=== PATIENT | female | born 1990 | race Two or more races ===

== ENCOUNTER 2016-09-07 17:10 | Emergency (ER) | payer MEDICAID ==
[~2016-09-07] VITALS: Ht 167.6 cm; Wt 57.6 kg
[2016-09-07 17:19] VITALS: BP 111/73
[2016-09-07] MEDS ORDERED: NKM (17:21)
[2016-09-07] MEDS ORDERED: Bacitracin Oint UD TOPIC ONE (17:45)
[2016-09-07] MEDS ORDERED: TdaP Vaccine 0.5ml Syr IM ONE (17:45)
[2016-09-07] MEDS ORDERED: Lidocaine 1% MPF 10mg/ml 5ml INJ ONE (17:45)
[2016-09-07] MEDS ORDERED: BACITRACIN15 GM TOPIC (18:18)
[2016-09-07] MEDS ORDERED: IBUPROFEN600 MG ORAL (18:18)
[2016-09-07 18:31] VITALS: BP 111/73
--- NOTE | 2016-09-07 21:15 | Emergency Room Report ---
History of Present Illness General Chief Complaint: Laceration Source: Patient Present Illness HPI The patient is a 25-year-old female presenting for laceration to the left hand which occurred today. The patient states that a cup fell onto cup that she was holding and a fragment cuts into the left hand. She noticed pain and bleeding. She applied pressure which stopped the bleeding. Denies any pain at this time. She denies any numbness or tingling. Last tetanus shot was within 2 years. She denies any other symptoms including N, V, F, chills Allergies: Coded Allergies: No Known Allergies (Unverified , 09/07/16) Patient History Past Medical History: see triage record Pertinent Family History: none Last Menstrual Period: 09/06/16 Reviewed Nursing Documentation: PMH: Agreed, PSxH: Agreed Nursing Documentation-PMH Past Medical History: No Stated History Review of Systems All Other Systems: negative except mentioned in HPI Physical Exam Vital Signs Date Time Temp Pulse Resp B/P Pulse Ox O2 Delivery O2 Flow Rate FiO2 09/07/16 17:19 98.1 79 16 111/73 98 Room Air Sp02 EP Interpretation: reviewed, normal General Appearance: no apparent distress, alert, GCS 15, non-toxic Head: normocephalic, atraumatic Eyes: bilateral eye PERRL, bilateral eye normal inspection Musculoskeletal: normal range of motion, tender - TTP over the laceration of the L dorsal thumb Neurologic: alert, oriented x3, responsive, motor strength/tone normal, sensory intact, speech normal Psychiatric: judgement/insight normal, memory normal, mood/affect normal, no suicidal/homicidal ideation Skin: normal turgor, laceration - 3cm linear horizontal laceration the L dorsal thumb proximal the to IPJ Lymphatic: no adenopathy Procedures Splinting Splinting : Consent: Verbal Location: L thumb Pre-Made Type: metal Pre-Proc Neuro Vasc Exam: normal Post-Proc Neuro Vasc Exam: normal Patient Tolerated: Well Complications: None Laceration/Wound Repair Laceration/Wound Repair : Consent: Verbal Wound Location: upper extremity Wound's Depth, Shape: superficial, linear Wound Length (cm): 4 Wound Explored: clean Irrigated w/ Saline (ccs): 200 Betadine Prep?: Yes Anesthesia: 1% Lidocaine Volume Anesthetic (ccs): 5 Wound Debrided: minimal Wound Repaired With: sutures Suture Size/Type: 4:0, proline Layer Closure?: No Sterile Dressing Applied?: Yes Splint Applied?: Yes Type of Splint Applied: metal finger Sling Applied?: No Patient Tolerated: Well Complications: None Medical Decision Making PA Attestation Dr. Larkin is my supervising physician. Patient management was discussed with my supervising physician Diagnostic Impression: Primary Impression: Thumb laceration Qualified Codes: S61.012A - Laceration without foreign body of left thumb without damage to nail, initial encounter ER Course The patient is a 25-year-old female presenting for laceration to the left hand Ddx considered include but not limited to fracture, tendon/ligament injury, avulsion, nerve damage PE: vitals WNL. NAD 3cm linear horizontal laceration the L dorsal thumb proximal the to IPJ. No ecchymosis.No obvious deformity of joints. SILT. Full AROM intact. The wound was irrigated with normal saline and cleaned with betadine. A 27g needle was used to administer 5mL of lidocaine w.o epi for digital block. 4 sutures were placed with 4-0 prolene. The wound was well approximated and the patient tolerated the procedure well. The wound was then cleaned and bacitracin was applied. A metal finger splint was applied The patient will continue to keep the wound clean and dry and will followup with PMD . Suture instructions provided. ER precautions are given Last Vital Signs Date Time Temp Pulse Resp B/P Pulse Ox O2 Delivery O2 Flow Rate FiO2 09/07/16 18:31 98.1 69 16 111/73 98 Room Air Status: improved Disposition: HOME, SELF-CARE Condition: Improved Scripts Bacitracin (Bacitracin) 28.4 Gm Oint...g. 1 APPLIC TOPIC THREE TIMES A DAY, #28 GM Prov: TERBRITTANIANJES P.A. 09/07/16 Ibuprofen* (MOTRIN*) 600 Mg Tablet 600 MG ORAL Q6H Y for For Pain, #30 TAB Prov: MADDISONANJENNAY P.A. 09/07/16 Patient Instructions: Laceration Care, Adult Additional Instructions: I discussed my findings with the patient. All questions and concerns have been answered. Treatment and medication compliance have been addressed. I advised the patient that they need to follow up with PMD in 7 days for wound check and suture removal. If you are unable to see PMD, return to the ED in 7 days. Return to ED if pain remains or worsens, you notice discharge from the wound, the wound continues to bleed, the suture/s fall out, you notice a fever or chills, or for any reason. Patient is advised to keep the wound clean and apply an antibacterial ointment. Patient verbalized understanding of discharge instructions. JES SPENCER September 07, 2016 21:14
== END 2016-09-07 18:45 | disposition home or self-care (01) ==
LOC: EMR 18:04
DX: S61.012A Laceration without foreign body of left thumb without damage to nail, initial encounter (principal); W25.XXXA Contact with sharp glass, initial encounter; Y92.410 Unspecified street and highway as the place of occurrence of the external cause
CPT/HCPCS: 12002; 29130; 99284; Z7502; 90471; 90715

== ENCOUNTER 2016-09-14 16:14 | Emergency (ER) | payer OTHER ==
[~2016-09-14] VITALS: Ht 167.6 cm; Wt 58.5 kg
[~2016-09-14 16:14] MED LIST: BACITRACIN15 GM TOPIC; IBUPROFEN600 MG ORAL; NKM
[2016-09-14 16:25] VITALS: BP 98/50
[2016-09-14 16:42] VITALS: BP 98/50
--- NOTE | 2016-09-14 21:56 | Emergency Room Report ---
History of Present Illness General Chief Complaint: Wound Recheck/Suture Removal Source: Patient Present Illness [facility] The patient is a 25-year-old female presenting for suture removal. The patient had stitches placed of the left thumb one week prior. She denies any complications and denies any pain, bleeding, or discharge. She denies numbness or tingling. She denies any other symptoms including nausea, vomiting, fever, chills Allergies: Coded Allergies: No Known Allergies (Unverified , 09/07/16) Patient History Past Medical History: see triage record Pertinent Family History: none Now: No Reviewed Nursing Documentation: PMH: Agreed, PSxH: Agreed Nursing Documentation-PMH Past Medical History: No Stated History Review of Systems All Other Systems: negative except mentioned in HPI Physical Exam Vital Signs Date Time Temp Pulse Resp B/P Pulse Ox O2 Delivery O2 Flow Rate FiO2 09/14/16 16:19 98.8 74 17 98/50 99 Room Air Sp02 EP Interpretation: reviewed, normal General Appearance: no apparent distress, alert, GCS 15, non-toxic Head: normocephalic, atraumatic Musculoskeletal: back normal, gait/station normal, normal range of motion, non- tender Neurologic: alert, oriented x3, responsive, motor strength/tone normal, sensory intact, speech normal Psychiatric: judgement/insight normal, memory normal, mood/affect normal, no suicidal/homicidal ideation Skin: other - L thumb sutures in place. No bleeding. No edema. No discharge Lymphatic: no adenopathy Medical Decision Making PA Attestation Dr. Larkin is my supervising physician. Patient management was discussed with my supervising physician Diagnostic Impression: Primary Impression: Visit for suture removal ER Course The patient is a 25-year-old female presenting for suture removal. Differential diagnosis considered: Wound infection, nonhealing wound, cellulitis , abscess Sutures are in place and wound well approximated. No erythema or edema. Sensation is intact. Suture removal: simple interrupted sutures were removed without complication. No bleeding or discharge. Wound is well approximated. No surrounding erythema. The patient is discharged and will continue to keep the area clean ER precautions given Last Vital Signs Date Time Temp Pulse Resp B/P Pulse Ox O2 Delivery O2 Flow Rate FiO2 09/14/16 16:42 98.8 74 17 98/50 99 Room Air Status: improved Disposition: HOME, SELF-CARE Condition: Improved Referrals: [employer] [facility],SARY (PCP) Patient Instructions: Suture Removal, Care After Additional Instructions: I discussed my findings with the patient. All questions and concerns have been answered. Treatment and medication compliance have been addressed. I advised the patient that they need to follow up with PMD in 3-5 days. Return to ED if symptoms worsen, new symptoms arise, or if needed for any reason. Patient verbalized understanding of discharge instructions. JES SPENCER Sep 14, 2016 21:56
== END 2016-09-14 16:43 | disposition home or self-care (01) ==
LOC: EMR 16:32
DX: Z48.02 Encounter for removal of sutures (principal)
CPT/HCPCS: 99281